=== PATIENT | male | born 1965 | race Caucasian/White ===

== ENCOUNTER 2018-06-15 14:40 | Outpatient (CLI) | payer MEDICARE, MEDICAID | END 2018-06-15 23:59 | disposition home or self-care (01) | LOC: RAD 14:40 | PROVIDERS: ATTEND Family Medicine | DX: R13.14 Dysphagia, pharyngoesophageal phase (principal); K21.9 Gastro-esophageal reflux disease without esophagitis; F79 Unspecified intellectual disabilities; G40.909 Epilepsy, unspecified, not intractable, without status epilepticus; Z79.899 Other long term (current) drug therapy | CPT/HCPCS: 74230 ==

== ENCOUNTER 2019-09-22 18:09 | Emergency (ER) | payer MEDICARE, MEDICAID ==
[~2019-09-22] VITALS: Ht 185.4 cm; Wt 91.0 kg
[2019-09-22] MEDS ORDERED: dexamethasone sod phosphate 10mg/ml inj IV STA (18:23)
[2019-09-22] MEDS ORDERED: CefTRIAXone 2gm/D5W 50ml 50 ML IV ONE (18:25)
[2019-09-22] MEDS ORDERED: acetaminophen 325mg tablet PO ONE (18:25)
[2019-09-22] MEDS ORDERED: ipratropium/albuterol 3ml nebule NEB ONE (18:25)
[2019-09-22] MEDS ORDERED: normal saline 1000ML IV soln IV ONE (18:25)
[2019-09-22 18:57] LABS: BASOPHILS % (AUTO) 0.4 % (0-1); EOSINOPHILS % (AUTO) 0.2 % (0-6); HEMOGLOBIN 15.1 g/dl (14.0-17.9); LYMPHOCYTES # (AUTO) 0.2 X10'3 (1.1-4.8); LYMPHOCYTES % (AUTO) 5.7 % (21-51); MEAN CORPUSCULAR HGB CONC 34.3 g/dL (33.0-36.5); MEAN CORPUSCULAR VOLUME 87.4 FL (78-98); MONOCYTES # (AUTO) 0.9 X10'3 (0-0.9); MONOCYTES % (AUTO) 21.5 % (2-12); NEUTROPHILS # (AUTO) 2.9 X10'3 (1.8-7.7); NEUTROPHILS % (AUTO) 72.2 % (42-75); PLATELET COUNT 259 X10'3 (140-440); RED BLOOD COUNT 5.03 X10'6 (4.70-6.10); RED CELL DISTRIBUTION WIDTH 13.6 % (11.5-14.5)
[2019-09-22 19:10] LABS: ALANINE AMINOTRANSFERASE 41 U/L (12-78); ALBUMIN 3.5 G/DL (3.4-5.0); ALBUMIN/GLOBULIN RATIO 0.8 (1.1-1.5); ALKALINE PHOSPHATASE 108 IU/L (46-116); ANION GAP 5 (8-16); ASPARTATE AMINO TRANSFERASE 35 U/L (10-37); BILIRUBIN,TOTAL 0.2 MG/DL (0.1-1.0); BLOOD UREA NITROGEN 13 MG/DL (7-18); BUN/CREATININE RATIO 13.5 (5.4-32.0); CALCIUM 8.5 MG/DL (8.5-10.1); CHLORIDE 101 MMOL/L (99-107); CREATININE 0.96 MG/DL (0.60-1.10); GLUCOSE 127 MG/DL (70-104); MAGNESIUM 1.8 MG/DL (1.5-2.4); POTASSIUM 3.5 MMOL/L (3.5-5.1); SODIUM 136 MMOL/L (135-145); TOTAL PROTEIN 7.8 G/DL (6.4-8.2); eGFR 82 ML/MIN
[2019-09-22 19:59] LABS: PLATELET ESTIMATE NORMAL; TOTAL CELLS COUNTED 100
[2019-09-22] MEDS ORDERED: ALBU18HF2 INH (20:12)
[2019-09-22] MEDS ORDERED: PRED20TA PO (20:12)
[2019-09-22] MEDS ORDERED: DOXY100C43 PO (20:12)
[2019-09-22 20:39] VITALS: BP 114/68
== END 2019-09-22 20:39 | disposition home or self-care (01) ==
LOC: ER 18:09
DX: J18.1 Lobar pneumonia, unspecified organism (principal); J06.9 Acute upper respiratory infection, unspecified; Z86.69 Personal history of other diseases of the nervous system and sense organs; Z98.890 Other specified postprocedural states; Z79.899 Other long term (current) drug therapy
CPT/HCPCS: 36415; 71046; 80053; 83605; 83735; 84145; 85025; 87040; 93005; 94640; 96365; 96375; 99284; J0696; J1100; J7030; 94760

== ENCOUNTER 2019-10-06 11:44 | Emergency (ER) | payer MEDICARE, MEDICAID ==
[~2019-10-06] VITALS: Ht 185.4 cm; Wt 88.1 kg
[~2019-10-06 11:44] MED LIST: ALBU18HF2 INH; PRED20TA PO
--- NOTE | 2019-10-06 14:08 | NUR ---
Dr. Valero is on the phone with [facility] obtaining the result from the vascular study.
[2019-10-06] MEDS ORDERED: RIVA15TA PO (14:26)
[2019-10-06 14:33] VITALS: BP 110/69
== END 2019-10-06 14:45 | disposition home or self-care (01) ==
LOC: ER 11:44
DX: I82.402 Acute embolism and thrombosis of unspecified deep veins of left lower extremity (principal); Z86.69 Personal history of other diseases of the nervous system and sense organs; Z79.899 Other long term (current) drug therapy
CPT/HCPCS: 93971; 99284

== ENCOUNTER 2020-02-23 10:53 | Emergency (ER) | payer MEDICARE, MEDICAID ==
[~2020-02-23] VITALS: Ht 182.9 cm; Wt 92.8 kg
[~2020-02-23 10:53] MED LIST changes: -PRED20TA PO; +RIVA15TA PO
[2020-02-23 12:06] LABS: CLARITY,URINE CLEAR (Clear); COLOR,URINE YELLOW (Yellow); GLUCOSE, URINE NEGATIVE (Neg); KETONES,URINE NEGATIVE (Neg); LEUKOCYTE ESTERASE ,URINE NEGATIVE (Neg); NITRITES, URINE NEGATIVE (Neg); OCCULT BLOOD,URINE NEGATIVE (Neg); PH,URINE 7.5 (4.8-8.0); PROTEIN,URINE NEGATIVE (Neg); UROBILINOGEN,URINE 0.2 E.U/dL (0.2-1.0)
[2020-02-23 12:12] LABS: UA COLLECTION TYPE URINAL
[2020-02-23 12:21] LABS: BASOPHILS # (AUTO) 0.1 X10'3 (0-0.2); EOSINOPHILS # (AUTO) 0.1 X10'3 (0-0.9); EOSINOPHILS % (AUTO) 1.1 % (0-6); HEMATOCRIT 47.2 % (42.0-52.0); HEMOGLOBIN 15.8 g/dl (14.0-17.9); LYMPHOCYTES # (AUTO) 1.2 X10'3 (1.1-4.8); MEAN CORPUSCULAR HEMOGLOBIN 28.9 PG (27.0-31.0); MEAN CORPUSCULAR HGB CONC 33.4 g/dL (33.0-36.5); MEAN CORPUSCULAR VOLUME 86.4 FL (78-98); MONOCYTES # (AUTO) 0.4 X10'3 (0-0.9); MONOCYTES % (AUTO) 7.3 % (2-12); NEUTROPHILS # (AUTO) 4.2 X10'3 (1.8-7.7); NEUTROPHILS % (AUTO) 70.6 % (42-75); PLATELET COUNT 220 X10'3 (140-440); RED BLOOD COUNT 5.46 X10'6 (4.70-6.10); RED CELL DISTRIBUTION WIDTH 13.1 % (11.5-14.5); WHITE BLOOD COUNT 5.9 X10'3 (4.5-11.0)
[2020-02-23 12:38] LABS: PARTIAL THROMBOPLASTIN TIME 34 SECONDS (22-32)
[2020-02-23 12:41] LABS: ALANINE AMINOTRANSFERASE 34 U/L (12-78); ALBUMIN 3.5 G/DL (3.4-5.0); ALBUMIN/GLOBULIN RATIO 0.9 (1.1-1.5); ALKALINE PHOSPHATASE 102 IU/L (46-116); ANION GAP 3 (8-16); ASPARTATE AMINO TRANSFERASE 17 U/L (10-37); BILIRUBIN,TOTAL 0.4 MG/DL (0.1-1.0); BLOOD UREA NITROGEN 9 MG/DL (7-18); BUN/CREATININE RATIO 9.3 (5.4-32.0); CHLORIDE 105 MMOL/L (99-107); CREATININE 0.97 MG/DL (0.60-1.10); GLUCOSE 101 MG/DL (70-104); POTASSIUM 4.2 MMOL/L (3.5-5.1); SODIUM 141 MMOL/L (135-145); TOTAL CARBON DIOXIDE 33.1 MMOL/L (24-32); TOTAL PROTEIN 7.4 G/DL (6.4-8.2); eGFR 81 ML/MIN
[2020-02-23] MEDS ORDERED: iohexol 300mg/ml 100ml inj. ONE (12:51)
--- NOTE | 2020-02-23 12:52 | NUR ---
PT OUT TO CT VIA WHEELCHAIR WITH DIE CAST TECHNICIAN
--- NOTE | 2020-02-23 13:07 | NUR ---
Iv started,requested to paged ct from ed clerk of court.
--- NOTE | 2020-02-23 13:07 | NUR ---
ct paged [phone]
--- NOTE | 2020-02-23 13:16 | NUR ---
PATIENT TO CT.
[2020-02-23 14:17] VITALS: BP 114/82
== END 2020-02-23 14:22 | disposition home or self-care (01) ==
LOC: ER 10:53
DX: K40.20 Bilateral inguinal hernia, without obstruction or gangrene, not specified as recurrent (principal); D50.9 Iron deficiency anemia, unspecified; R62.50 Unspecified lack of expected normal physiological development in childhood; R10.32 Left lower quadrant pain; Z86.69 Personal history of other diseases of the nervous system and sense organs; Z86.718 Personal history of other venous thrombosis and embolism; Z79.01 Long term (current) use of anticoagulants; Z79.899 Other long term (current) drug therapy
CPT/HCPCS: 36415; 74177; 80053; 81003; 85025; 85610; 85730; 99285; Q9967

== ENCOUNTER 2021-01-29 12:28 | Emergency (ER) | payer MEDICARE, MEDICAID ==
[~2021-01-29] VITALS: Ht 185.4 cm; Wt 99.8 kg
[2021-01-29 14:23] LABS: CLARITY,URINE CLEAR (Clear); COLOR,URINE YELLOW (Yellow); GLUCOSE, URINE NEGATIVE (Neg); KETONES,URINE NEGATIVE (Neg); LEUKOCYTE ESTERASE ,URINE NEGATIVE (Neg); NITRITES, URINE NEGATIVE (Neg); OCCULT BLOOD,URINE TRACE-INTACT (Neg); PROTEIN,URINE NEGATIVE (Neg); UROBILINOGEN,URINE 0.2 E.U/dL (0.2-1.0)
[2021-01-29 14:25] LABS: UA COLLECTION TYPE CLN CATCH MIDSTREAM
[2021-01-29 14:29] LABS: BACTERIA,URINE 1+ /HPF (Neg); MUCUS STRANDS MODERATE /LPF (Neg); RBC,URINE 0-2 /HPF (0-2); SQUAMOUS EPITHELIAL CELL,UR FEW /LPF (FEW); WBC,URINE 0-4 /HPF (0-4)
[2021-01-29 14:34] LABS: BASOPHILS % (AUTO) 0.8 % (0-1); EOSINOPHILS # (AUTO) 0.1 X10'3 (0-0.9); EOSINOPHILS % (AUTO) 0.9 % (0-6); HEMATOCRIT 47.3 % (42.0-52.0); HEMOGLOBIN 15.7 g/dl (14.0-17.9); LYMPHOCYTES # (AUTO) 1.3 X10'3 (1.1-4.8); LYMPHOCYTES % (AUTO) 21.2 % (21-51); MEAN CORPUSCULAR HEMOGLOBIN 28.6 PG (27.0-31.0); MEAN CORPUSCULAR HGB CONC 33.2 g/dL (33.0-36.5); MEAN CORPUSCULAR VOLUME 86.2 FL (78-98); MEAN PLATELET VOLUME 8.3 FL (7.4-10.4); MONOCYTES # (AUTO) 0.5 X10'3 (0-0.9); MONOCYTES % (AUTO) 8.4 % (2-12); NEUTROPHILS # (AUTO) 4.1 X10'3 (1.8-7.7); NEUTROPHILS % (AUTO) 68.7 % (42-75); PLATELET COUNT 222 X10'3 (140-440); RED BLOOD COUNT 5.48 X10'6 (4.70-6.10); RED CELL DISTRIBUTION WIDTH 14.2 % (11.5-14.5); WHITE BLOOD COUNT 5.9 X10'3 (4.5-11.0)
[2021-01-29 14:48] LABS: ALANINE AMINOTRANSFERASE 30 U/L (12-78); ALBUMIN 3.5 G/DL (3.4-5.0); ALBUMIN/GLOBULIN RATIO 0.9 (1.1-1.5); ALKALINE PHOSPHATASE 87 IU/L (46-116); ANION GAP 7 (8-16); ASPARTATE AMINO TRANSFERASE 20 U/L (10-37); BILIRUBIN,TOTAL 0.3 MG/DL (0.1-1.0); BLOOD UREA NITROGEN 12 MG/DL (7-18); BUN/CREATININE RATIO 13.2 (5.4-32.0); CALCIUM 8.9 MG/DL (8.5-10.1); CHLORIDE 103 MMOL/L (99-107); CREATININE 0.91 MG/DL (0.60-1.10); GLUCOSE 97 MG/DL (70-104); POTASSIUM 3.9 MMOL/L (3.5-5.1); SODIUM 141 MMOL/L (135-145); TOTAL CARBON DIOXIDE 30.9 MMOL/L (24-32); TOTAL PROTEIN 7.5 G/DL (6.4-8.2); eGFR 86 ML/MIN
[2021-01-29 15:50] VITALS: BP 98/122
== END 2021-01-29 15:52 | disposition home or self-care (01) ==
LOC: ER 12:29
DX: R41.0 Disorientation, unspecified (principal); D64.9 Anemia, unspecified; Z79.899 Other long term (current) drug therapy
CPT/HCPCS: 36415; 80053; 81001; 85025; 99283